=== PATIENT | female | born 1975 ===

== ENCOUNTER → 2018-07-08 | Day surgery (SDC) | payer OTHER ==
[~2018-07-08] MED LIST: CODE1TAB37 PO; DOXYCYCLINE HY100 MG PO
== END | disposition home or self-care (01) ==
LOC: ADM 07-01 08:00 → CIR.AMB 07:49
DX: D25.0 Submucous leiomyoma of uterus (principal); N84.0 Polyp of corpus uteri

== ENCOUNTER 2022-05-01 08:57 | Outpatient (CLI) | payer OTHER | END 2022-05-01 09:00 | disposition home or self-care (01) | LOC: SONOGRAMA 08:57 | PROVIDERS: ATTEND Pathology Anatomic Pathology & Clinical Pathology | DX: E04.2 Nontoxic multinodular goiter (principal) ==

== ENCOUNTER 2023-01-08 01:00 | Emergency (ER) | payer OTHER ==
[~2023-01-08] VITALS: Ht 162.6 cm; Wt 47.2 kg
[2023-01-08] MEDS ORDERED: XARELTO20 MG PO (01:13)
[2023-01-08] MEDS ORDERED: PROTONIX20 MG PO (01:13)
== END 2023-01-08 11:11 | disposition home or self-care (01) ==
LOC: ER 01:00
DX: K81.0 Acute cholecystitis (principal)